=== PATIENT | female | born 1955 | race Caucasian/White ===

== ENCOUNTER 2022-10-23 08:52 | Day surgery (SDC) | payer OTHER ==
[2022-10-19 16:21] VITALS: BMI 25.7
[2022-10-23 09:57] VITALS: RESP 16; TEMP 97.9
[2022-10-23 11:43] VITALS: BP 106/65; PULSE 55
== END 2022-10-23 11:00 ==
LOC: FASU-ENDO 08:52
PROVIDERS: ATTEND Internal Medicine Gastroenterology
PROC: 0DB78ZX Excision of Stomach, Pylorus, Via Natural or Artificial Opening Endoscopic, Diagnostic (ICD-10-PCS; 2022-10-23)
PROC: 0DB68ZX Excision of Stomach, Via Natural or Artificial Opening Endoscopic, Diagnostic (ICD-10-PCS; 2022-10-23)
PROC: 0DB48ZX Excision of Esophagogastric Junction, Via Natural or Artificial Opening Endoscopic, Diagnostic (ICD-10-PCS; 2022-10-23)
PROC: 0DB98ZX Excision of Duodenum, Via Natural or Artificial Opening Endoscopic, Diagnostic (ICD-10-PCS; principal; 2022-10-23 09:39)
DX: K29.50 Unspecified chronic gastritis without bleeding (principal); K20.90 Esophagitis, unspecified without bleeding; K76.6 Portal hypertension; K31.89 Other diseases of stomach and duodenum; R10.13 Epigastric pain
CPT/HCPCS: 82962; 88305-TC; 88341-TC; 88342-TC

== ENCOUNTER 2022-11-13 10:10 | Day surgery (SDC) | payer OTHER ==
[2022-11-12 15:27] VITALS: BMI 25.7
[2022-11-13] MEDS ORDERED: PROPOFOL 40 ML ONE (11:22)
[2022-11-13] MEDS ORDERED: ePHEDrine SULFATE 50 MG/1 ML AMPULE ONE (11:51)
[2022-11-13 12:47] VITALS: RESP 16; TEMP 97.7
[2022-11-13 12:52] VITALS: BP 142/73; PULSE 58
== END 2022-11-13 12:45 | disposition home or self-care (01) ==
LOC: FASU-ENDO 10:10
PROVIDERS: ATTEND Internal Medicine Gastroenterology
PROC: 0DBL8ZX Excision of Transverse Colon, Via Natural or Artificial Opening Endoscopic, Diagnostic (ICD-10-PCS; 2022-11-13)
PROC: 0DBH8ZX Excision of Cecum, Via Natural or Artificial Opening Endoscopic, Diagnostic (ICD-10-PCS; principal; 2022-11-13 11:41)
DX: Z12.11 Encounter for screening for malignant neoplasm of colon (principal); D12.0 Benign neoplasm of cecum; D12.3 Benign neoplasm of transverse colon; K64.1 Second degree hemorrhoids
CPT/HCPCS: 88305-TC

== ENCOUNTER 2024-01-21 08:56 | Day surgery (SDC) | payer OTHER ==
[2024-01-14 11:34] VITALS: BMI 25.7
[2024-01-21 11:10] VITALS: RESP 18
[2024-01-21 11:13] VITALS: BP 115/69; PULSE 66; TEMP 98
== END 2024-01-21 10:35 ==
LOC: FASU-ENDO 08:56
PROVIDERS: ATTEND Internal Medicine Gastroenterology
PROC: 0DB68ZX Excision of Stomach, Via Natural or Artificial Opening Endoscopic, Diagnostic (ICD-10-PCS; 2024-01-21)
PROC: 0DB28ZX Excision of Middle Esophagus, Via Natural or Artificial Opening Endoscopic, Diagnostic (ICD-10-PCS; 2024-01-21)
PROC: 0DB48ZX Excision of Esophagogastric Junction, Via Natural or Artificial Opening Endoscopic, Diagnostic (ICD-10-PCS; 2024-01-21)
PROC: 0DB98ZX Excision of Duodenum, Via Natural or Artificial Opening Endoscopic, Diagnostic (ICD-10-PCS; principal; 2024-01-21 09:42)
DX: K29.50 Unspecified chronic gastritis without bleeding (principal); K20.90 Esophagitis, unspecified without bleeding; R13.10 Dysphagia, unspecified
CPT/HCPCS: 82962; 88305-TC; 88342-TC

== ENCOUNTER 2024-02-18 15:45 | Emergency (ER) | payer OTHER ==
[2024-02-18 15:52] VITALS: RESP 18; BMI 26.4
[2024-02-18 16:36] LABS: HEMATOCRIT 41.3 % (32.4-45.2); HEMOGLOBIN 13.8 GM/dL (10.7-15.3); MCH 29.8 pg (25.7-33.7); MCHC 33.4 g/dl (32.0-36.0); MEAN PLT VOLUME 8.7 fl (7.5-11.1); PLATELET COUNT 157 10^3/uL (134-434); RBC 4.64 M/mm3 (3.60-5.2); RDW 13.9 % (11.6-15.6); WHITE BLOOD COUNT 5.1 K/mm3 (4.0-10.0)
[2024-02-18 16:44] LABS: PROTHROMBIN TIME (PATIENT) 11.3 SEC (9.7-13.0)
[2024-02-18 16:47] LABS: ACTIVATED PTT 22.7 SECONDS (25.2-36.5)
[2024-02-18 16:56] LABS: POTASSIUM 4.2 mmol/L (3.5-5.1)
[2024-02-18 16:58] LABS: ALBUMIN 3.9 g/dl (3.4-5.0); BLOOD UREA NITROGEN 15.7 mg/dL (7-18); CALCIUM 9.5 mg/dL (8.5-10.1); MAGNESIUM 2.1 mg/dL (1.8-2.4)
[2024-02-18 17:00] LABS: ANISOCYTOSIS 1+; MACROCYTOSIS 0; TEAR DROP CELLS 1+
[2024-02-18 17:01] LABS: CREATININE 0.9 mg/dL (0.55-1.3)
[2024-02-18 17:02] LABS: PHOSPHOROUS 3.3 mg/dL (2.5-4.9)
[2024-02-18 17:03] LABS: BILIRUBIN,TOTAL 0.3 mg/dL (0.2-1); TOT PROT 7.3 g/dl (6.4-8.2)
[2024-02-18] MEDS ORDERED: ACETAMINOPHEN INJECTION 100 ML IVPB ONE (17:27)
[2024-02-18] MEDS: ACETAMINOPHEN 1000 MG/100 ML BAG IVPB ONE (17:29)
[2024-02-19 06:48] VITALS: BP 157/86; PULSE 62; TEMP 98
== END 2024-02-19 09:49 ==
LOC: JER 15:45
PROC: 3E033NZ Introduction of Analgesics, Hypnotics, Sedatives into Peripheral Vein, Percutaneous Approach (ICD-10-PCS; principal; 2024-02-18)
DX: R07.9 Chest pain, unspecified (principal); R05.9 Cough, unspecified; R07.0 Pain in throat; R61 Generalized hyperhidrosis; R68.83 Chills (without fever); Z20.822 Contact with and (suspected) exposure to COVID-19
CPT/HCPCS: 0241U-QW; 36415; 71045-TC-FY; 80053; 83735; 84100; 84484; 85025; 85610; 85730; 87651; 93005; 93010; 99285-25; J0131